=== PATIENT | female | born 1990 | race Caucasian/White ===

== ENCOUNTER 2016-03-26 17:06 | Emergency (ER) | payer OTHER ==
[~2016-03-26] VITALS: Ht 175.3 cm; Wt 65.0 kg
[~2016-03-26 17:06] MED LIST: ABIL5TAB6 PO; ADDE5TAB PO; BUPR300T PO
[2016-03-26 17:09] VITALS: BP 127/79; PULSE 73; RESP 16; TEMP 98.1; O2SAT 99
--- NOTE | 2016-03-26 17:59 | PD ---
HPI Chief Complaint: Fall Time Seen by Provider: 17:59 Travel History International Travel<30 days: No Contact w/Intl Traveler<30days: [place] Country Traveled to: [place] 03/22/16 Traveled to known affect area: No History of Present Illness HPI 25-year-old female presents to the ED for evaluation of malaise, headache, nausea, neck pain, paresthesias in bilateral arms following mechanical fall last night. Patient states that she was drinking, fell and hit her head on the wall. She denies loss of consciousness. She does not remember the rest of the evening but states that a friend reported that she vomited multiple times. She states that when she woke up this morning she was fine but the course of day she developed a dull, generalized headache. She denies vision changes, dizziness. She endorses nausea without vomiting. Endorses 5/10 neck pain, worse with range of motion. She endorses numbness and tingling of the bilateral hands. She denies joint pain, weakness, limitations to range of motion, back pain, saddle anesthesia, incontinence. No treatment attempted at home. [facility] Past Medical History ADD: Yes Anxiety: Yes Depression: Yes (3 YEARS HISTORY) Cancer: No Cardiovascular Problems: No Diminished Hearing: No Endocrine: No Genitourinary: No Immune Disorder: No Musculoskeletal: No Neurologic: No Psychiatric: Yes Reproductive: No Respiratory: No Tetanus Vaccination: < 5 Years ?: Not LMP: MAR 2016 Past Surgical History Other Surgery: No Social History Alcohol Use: Yes (OCCASIONAL) Tobacco Use: No Substance Use: No Allergies-Medications (Allergen,Severity, Reaction): Coded Allergies: No Known Allergies (Unverified , 03/26/16) Reported Meds & Prescriptions Reported Meds & Active Scripts Active No Active Prescriptions or Reported Medications Review of Systems Except as stated in HPI: all other systems reviewed are Neg Physical Exam Narrative GENERAL: Well-nourished, well-developed white female in no acute distress. SKIN: Warm and dry. Patient has a large frontal cephalohematoma over the left eye. Thorough evaluation reveals no other edema, ecchymosis, abrasion, or laceration of the skin. HEAD: Normocephalic. Atraumatic. No raccoon eyes or negrete sign. No tenderness to palpation of the skull. No bony step-offs. No malocclusion of the teeth. EYES: No scleral icterus. No injection or drainage. PERRLA. EOMI. ENT: Pearly montgomery tympanic membrane is bilaterally. Nasal mucosa is moist. Oropharynx without erythema, edema or exudate. NECK: Supple, trachea midline. No JVD or lymphadenopathy. No midline tenderness to palpation. Patient retains full, active, painless range of motion of the neck. CARDIOVASCULAR: Regular rate and rhythm without murmurs, gallops, or rubs. 2+ DP and radial pulses bilaterally. RESPIRATORY: Breath sounds clear and equal bilaterally. No accessory muscle use. GASTROINTESTINAL: Abdomen soft, non-tender, nondistended. + Bowel sounds MUSCULOSKELETAL: No cyanosis, or edema. No tenderness to palpation or limitations to range of motion of the joints of the upper and lower extremities bilaterally. 5/5 biceps and triceps strength bilaterally. 5/5 plantar flexion , dorsiflexion, knee and hip flexion bilaterally. NEUROLOGICAL: Awake and alert. Cranial nerves II through XII intact. Motor and sensory grossly within normal limits. 5/5 muscle strength in all muscle groups. Normal speech. BACK: Nontender without obvious deformity. No CVA tenderness. No midline tenderness. tenderness. Data Data Last Documented VS Vital Signs Date Time Temp Pulse Resp B/P Pulse Ox O2 Delivery O2 Flow Rate FiO2 03/26/16 19:49 68 16 112/65 100 03/26/16 17:09 [address] Brain W/O Iv Contrast(Rout) (03/26/16 18:13) MDM Medical Decision Making Medical Screen Exam Complete: Yes Emergency Medical Condition: Yes Differential Diagnosis Cephalgia versus dehydration versus muscle skeletal pain versus paresthesias versus skull fracture versus ICH versus other Narrative Course 25-year-old female presents to the ED for evaluation of malaise, headache, nausea, neck pain, paresthesias in bilateral arms following mechanical fall while drunk last night. Patient states that she hit her head on a wall. She denies loss of consciousness. She does not remember the rest of the evening but states that a friend reported that she vomited multiple times. Woke up feeling well this morning but developed a dull, generalized headache over the course of the day. Endorses nausea, 5/10 neck pain, worse with range of motion , numbness and tingling of bilateral hands. She denies vision changes, dizziness , joint pain, weakness, limitations to range of motion, back pain, saddle anesthesia, incontinence. Vitals reviewed. Physical exam reveals a large cephalohematoma above the left eyebrow but is otherwise unremarkable. I offered the patient IV fluids, basic labs and headache treatment which she refused. CT of the cervical spine ruled out by Nexus criteria. CT of the head reveals no acute intracranial abnormality, swelling of the left frontal scalp. I discussed the results of the CT with the patient. I advised her to treat symptomatically, return to normal, gentle activities as tolerated, return to the ED for worsening of symptoms. We discussed red flag symptoms. She indicated understanding of the instructions, is amenable to plan of care. She stable and discharged home. Diagnosis Primary Impression: Traumatic cephalohematoma Qualified Code: S00.93XA - Traumatic cephalohematoma, initial encounter Referrals: Primary Care Physician Patient Instructions: Contusion in Adults (ED), General Instructions Additional Instructions: Rest, hydrate. Continue symptomatic treatment with ibuprofen. Return to normal, gentle activities as tolerated. Follow up with her primary care provider. Return to the ED for worsening of symptoms or any urgent or emergent medical condition. Scripts No Active Prescriptions or Reported Meds Disposition: 01 DISCHARGE HOME Condition: Stable Ruth Thao Mar 26, 2016 17:59
--- NOTE | 2016-03-26 19:09 | RADRPT ---
EXAM DATE/TIME: 03/26/2016 18:48 [facility] COMPARISON: No previous studies available for comparison. INDICATIONS : Trauma, fall. Cephalgia with nausea and vomiting. RADIATION DOSE: 37.73 CTDIvol (mGy) MEDICAL HISTORY : None SURGICAL HISTORY : None. ENCOUNTER: Initial ACUITY: 1 day PAIN SCALE: 5/10 LOCATION: cranial TECHNIQUE: Multiple contiguous axial images were obtained of the head. Using automated exposure control and adj ustment of the mA and/or kV according to patient size, radiation dose was kept as low as reasonably a chievable to obtain optimal diagnostic quality images. FINDINGS: CEREBRUM: The ventricles are normal for age. No evidence of midline shift, mass lesion, hemorrhage or acute in farction. No extra-axial fluid collections are seen. POSTERIOR FOSSA: The cerebellum and brainstem are intact. The 4th ventricle is midline. The cerebellopontine angle i s unremarkable. EXTRACRANIAL: The visualized portion of the orbits is intact. There is mild focal soft tissue swelling at the left frontal scalp. SKULL: The calvaria is intact. No evidence of skull fracture. CONCLUSION: 1. No acute intracranial abnormality. 2. Left frontal scalp swelling. Aram Mcginnis MD on March 26, 2016 at 19:07 Board Certified Radiologist. This report was verified electronically.
[2016-03-26 19:49] VITALS: BP 112/65; PULSE 68; RESP 16; O2SAT 100
== END 2016-03-26 19:48 | disposition home or self-care (01) ==
LOC: NETRI 17:06
DX: S06.2X0A Diffuse traumatic brain injury without loss of consciousness, initial encounter (principal); W19.XXXA Unspecified fall, initial encounter
CPT/HCPCS: 70450